=== PATIENT | female | born 1945 | race Hispanic/Latino ===

== ENCOUNTER 2017-02-06 16:24 | Emergency (ER) | payer MEDICARE, MEDICAID | END 2017-02-06 17:11 | disposition home or self-care (01) | LOC: ERS 16:24 | DX: G89.29 Other chronic pain (principal); M25.521 Pain in right elbow; E11.9 Type 2 diabetes mellitus without complications; E03.9 Hypothyroidism, unspecified; E78.5 Hyperlipidemia, unspecified; I10 Essential (primary) hypertension; F32.9 Major depressive disorder, single episode, unspecified; F17.210 Nicotine dependence, cigarettes, uncomplicated; E11.42 Type 2 diabetes mellitus with diabetic polyneuropathy; Z79.899 Other long term (current) drug therapy; Z79.82 Long term (current) use of aspirin | CPT/HCPCS: 96372; J2270 ==

== ENCOUNTER 2017-02-16 13:18 | Emergency (ER) | payer MEDICARE, MEDICAID ==
[2017-02-16] MEDS ORDERED: Morphine 2 MG/ML SYRINGE ONE (14:46)
== END 2017-02-16 15:28 | disposition home or self-care (01) ==
LOC: ERS 13:18
DX: E11.41 Type 2 diabetes mellitus with diabetic mononeuropathy (principal); G56.92 Unspecified mononeuropathy of left upper limb; E03.9 Hypothyroidism, unspecified; E78.5 Hyperlipidemia, unspecified; I10 Essential (primary) hypertension; F17.210 Nicotine dependence, cigarettes, uncomplicated; F32.9 Major depressive disorder, single episode, unspecified; Z79.82 Long term (current) use of aspirin; Z79.899 Other long term (current) drug therapy
CPT/HCPCS: 93005; 96372; J2270

== ENCOUNTER 2017-03-01 20:06 | Emergency (ER) | payer MEDICAID, MEDICARE ==
[2017-03-01 21:15] LABS: #Basophils 0.1 thou/uL (0.0-0.2); #Eosinphils 0.2 thou/uL (0.0-0.7); #Lymphocytes 2.6 thou/uL (1.20-3.40); #Monocytes 0.6 thou/uL (0.11-0.59); #Neutrophils 5.4 thou/uL (1.40-6.50); %Basophils 0.9 % (0.0-1.0); %Eosinophils 2.6 % (0.0-10.0); %Lymphocytes 28.9 % (21.0-51.0); Mean Platelet Volume 6.8 fL (7.4-10.4); Red Blood Cell (RBC) Count 4.97 mill/uL (4.20-5.40); White Blood Cell (WBC) Count 8.9 thou/uL (4.8-10.8)
[2017-03-01 21:34] LABS: ALT (SGPT) 11 U/L (8-55); AST (SGOT) 13 U/L (5-34); Alkaline Phosphatase 72 U/L (40-150); Anion Gap 15 mmol/L (10-20); BUN (Urea Nitrogen) 12 mg/dL (9.8-20.1); Bilirubin, Total 0.3 mg/dL (0.2-1.2); Calc. Creatinine Clearance 0 mL/min (70-130); Calcium 9.1 mg/dL (7.8-10.44); Carbon Dioxide 23 mmol/L (23-31); Chloride 101 mmol/L (98-107); Estimated GFR-MDRD 77; Globulin 3.9 g/dL (2.4-3.5); Protein, Total 7.3 g/dL (6.0-8.3)
[2017-03-01] MEDS ORDERED: Morphine 4 MG/ML Carpuject ONE (22:13)
--- NOTE | 2017-04-20 15:24 | EKG ---
Test Reason : Blood Pressure : / mmHG Vent. Rate : 092 BPM Atrial Rate : 092 BPM P-R Int : 168 ms QRS Dur : 118 ms QT Int : 388 ms P-R-T Axes : 043 -56 093 degrees QTc Int : 479 ms Normal sinus rhythm Left axis deviation Left ventricular hypertrophy with QRS widening and repolarization abnormality Cannot rule out Septal infarct , age undetermined Abnormal ECG Confirmed by FUENTES Medina, MACK ([id number]), image editor MICHELLE GUTIERREZ ([id number]) on 04/20/2017 3:24:19 PM Referred By: Confirmed By:MACK DILL M.D.
== END 2017-03-01 23:41 | disposition home or self-care (01) ==
LOC: ERS 20:06
DX: M79.601 Pain in right arm (principal); E11.65 Type 2 diabetes mellitus with hyperglycemia; E03.9 Hypothyroidism, unspecified; E78.5 Hyperlipidemia, unspecified; I10 Essential (primary) hypertension; F32.9 Major depressive disorder, single episode, unspecified; F17.210 Nicotine dependence, cigarettes, uncomplicated; Z79.899 Other long term (current) drug therapy; Z87.440 Personal history of urinary (tract) infections
CPT/HCPCS: 36415; 36416; 80053; 85025; 93005; 96372; J2270

== ENCOUNTER 2017-04-08 14:23 | Outpatient (CLI) | payer MEDICARE, MEDICAID ==
--- NOTE | 2017-04-08 19:29 | MRI ---
LEFT SHOULDER MRI WITHOUT IV CONTRAST: History: 71-year-old female with chronic left shoulder pain. Technique: Multiplanar, multisequence MRI examination of the left shoulder was performed. FINDINGS: There is some moderate fluid in the subdeltoid bursa and very minimal fluid in the subacromial bursa. Degenerative changes of the AC joint with some subchondral cystic changes with some downsloping of t he anterior acromion. There is a somewhat globular shaped focus of abnormal high signal involving the insertion of the supraspinatus tendon anteriorly associated with some subchondral cystic change prob ably representing at least a high grade partial thickness insertional tear with probable small puncta te full thickness component given adjacent subdeltoid bursal fluid. There is some minimal abnormal ma rrow signal in the anterior greater tuberosity adjacent to the subchondral cystic change. There also appears to be a small interstitial component tear. Subchondral cystic changes are noted adjacent to t he infraspinatus tendon insertion. Subscapularis and biceps tendons appear intact. There is some mini mal increased signal associated with the superior labrum, probably a degenerative type slap tear. Rot ator cuff muscles are within normal limits of signal and volume. IMPRESSION: At least mid to probable high grade focal somewhat globular tear of the supraspinatus tendon insertio n region with fluid within the subdeltoid bursa, probably representing a small punctate full thicknes s component tear. No evidence for significant retraction. Abnormal signal involving the superior labr um suspicious for a degenerative type slap tear. AC joint arthrosis. Minimal abnormal marrow signal a round a small subchondral cystic focus involving the anterior greater tuberosity. POS: [facility]
== END 2017-04-08 14:24 | disposition home or self-care (01) ==
LOC: MRI 14:23
PROVIDERS: ATTEND Family Medicine
DX: M25.512 Pain in left shoulder (principal); G89.29 Other chronic pain; S46.812A Strain of other muscles, fascia and tendons at shoulder and upper arm level, left arm, initial encounter; M19.012 Primary osteoarthritis, left shoulder; M85.412 Solitary bone cyst, left shoulder

== ENCOUNTER 2017-04-24 16:31 | Emergency (ER) | payer MEDICARE, MEDICAID ==
[2017-04-24] MEDS ORDERED: Morphine 4 MG/ML VIAL ONE ×2 (20:23→20:24)
[2017-04-24 20:35] LABS: #Basophils 0.1 thou/uL (0.0-0.2); #Eosinphils 0.2 thou/uL (0.0-0.7); #Lymphocytes 2.7 thou/uL (1.20-3.40); #Monocytes 0.5 thou/uL (0.11-0.59); #Neutrophils 5.4 thou/uL (1.40-6.50); %Eosinophils 2.5 % (0.0-10.0); %Lymphocytes 30.4 % (21.0-51.0); %Monocytes 5.6 % (0.0-10.0); Hematocrit 36.7 % (36.0-47.0); Mean Platelet Volume 7.4 fL (7.4-10.4); Red Blood Cell (RBC) Count 4.36 mill/uL (4.20-5.40); White Blood Cell (WBC) Count 8.9 thou/uL (4.8-10.8)
[2017-04-24 21:19] LABS: ALT (SGPT) 12 U/L (8-55); AST (SGOT) 18 U/L (5-34); Alkaline Phosphatase 57 U/L (40-150); Anion Gap 17 mmol/L (10-20); BUN (Urea Nitrogen) 18 mg/dL (9.8-20.1); Bilirubin, Total 0.4 mg/dL (0.2-1.2); Calc. Creatinine Clearance 0 mL/min (70-130); Calcium 9.8 mg/dL (7.8-10.44); Carbon Dioxide 21 mmol/L (23-31); Chloride 103 mmol/L (98-107); Estimated GFR-MDRD 69; Globulin 3.7 g/dL (2.4-3.5); Protein, Total 7.8 g/dL (6.0-8.3)
== END 2017-04-24 20:39 | disposition home or self-care (01) ==
LOC: ERS 16:31
DX: G89.29 Other chronic pain (principal); M25.512 Pain in left shoulder; F17.210 Nicotine dependence, cigarettes, uncomplicated; E11.42 Type 2 diabetes mellitus with diabetic polyneuropathy; E03.9 Hypothyroidism, unspecified; E78.5 Hyperlipidemia, unspecified; F32.9 Major depressive disorder, single episode, unspecified; I10 Essential (primary) hypertension
CPT/HCPCS: 36415; 80053; 85025; 93005; 96372; 99406; J2270

== ENCOUNTER 2017-05-17 11:48 | Emergency (ER) | payer MEDICARE, MEDICAID ==
--- NOTE | 2017-05-17 14:11 | RAD ---
THREE VIEWS LEFT SHOULDER: DATE: 05/17/17. HISTORY: Generalized weakness. Weight loss. History reports recent fall onto left shoulder and now has left shoulder pain. COMPARISON: 12/02/16. FINDINGS: There is no evidence of a fracture or dislocation involving the left shoulder. Views of the left vianca ulder are stable compared to the prior exam. IMPRESSION: No acute osseous abnormality of the left shoulder. POS: [facility]
--- NOTE | 2017-05-17 14:11 | RAD ---
PORTABLE AP CHEST X-RAY: 05/17/2017 HISTORY: Generalized weakness and decreased appetite. The patient has been waking up with shortness of breath in the middle of the night. COMPARISON: 12/02/2016 FINDINGS: The cardiac silhouette is magnified by projection but does appear mildly enlarged. The pulmonary vas culature is within normal limits, and the lungs are clear. Vascular calcifications are seen in the t horacic aorta. There has been no interval change from the prior exam. IMPRESSION: 1. Mild cardiomegaly without overt congestive heart failure. 2. No acute cardiopulmonary process. POS: [facility]
[2017-05-17 14:21] LABS: #Basophils 0.1 thou/uL (0.0-0.2); #Eosinphils 0.2 thou/uL (0.0-0.7); #Monocytes 0.5 thou/uL (0.11-0.59); #Neutrophils 4.9 thou/uL (1.40-6.50); %Basophils 1.2 % (0.0-1.0); %Eosinophils 1.9 % (0.0-10.0); %Monocytes 5.2 % (0.0-10.0); %Neutrophils 56.7 % (42.0-75.0); Hemoglobin 10.9 g/dL (12.0-16.0); Mean Corpuscular HGB CONC 32.1 g/dL (32.0-36.0); Mean Corpuscular Hemoglobin 26.9 pg (27.0-31.0); Mean Corpuscular Volume 83.8 fl (81.0-99.0); Mean Platelet Volume 7.2 fL (7.4-10.4); Platelet Count 437 thou/uL (130-400); RBC Distribution Width 15.9 % (11.5-14.5); Red Blood Cell (RBC) Count 4.05 mill/uL (4.20-5.40); White Blood Cell (WBC) Count 8.6 thou/uL (4.8-10.8)
[2017-05-17 14:38] LABS: Bilirubin Negative (Negative); Blood, Urine Negative (Negative); Clarity CLOUDY (Clear); Glucose, Urine (Dipstick) >=1000 mg/dL (Negative); Leukocyte Moderate (Negative); Nitrite Negative (Negative); Protein, Urine (Dipstick) 30 mg/dL (Neg-Trace); Specific Gravity, Urine 1.027 (1.002-1.036)
[2017-05-17 14:40] LABS: Bacteria/HPF 4+ HPF (None Seen); Hyaline Casts/LPF 4-6 HYALINE CAST LPF (0-3 Hyaline); Pathc Cast-AUWi Flag 0.94 (0-2.49); Squamous Epithelial 0-3 HPF (0-3)
[2017-05-17 14:49] LABS: CKMB 4.2 ng/mL (0-6.6); Troponin I 0.037 ng/mL (< 0.028)
[2017-05-17 14:53] LABS: RBC/HPF None Seen HPF (0-3)
[2017-05-17 14:56] LABS: ALT (SGPT) 14 U/L (8-55); AST (SGOT) 43 U/L (5-34); Alkaline Phosphatase 59 U/L (40-150); Anion Gap 18 mmol/L (10-20); BUN (Urea Nitrogen) 12 mg/dL (9.8-20.1); Bilirubin, Total 0.4 mg/dL (0.2-1.2); CK (CPK) 151 U/L (29-168); Calc. Creatinine Clearance 0 mL/min (70-130); Calcium 9.6 mg/dL (7.8-10.44); Carbon Dioxide 22 mmol/L (23-31); Chloride 100 mmol/L (98-107); Estimated GFR-MDRD 60; Globulin 4.6 g/dL (2.4-3.5); Glucose 115 mg/dL (80-115); Lipase 21 U/L (8-78); Potassium 5.6 mmol/L (3.5-5.1); Protein, Total 8.6 g/dL (6.0-8.3); Sodium 134 mmol/L (136-145)
== END 2017-05-17 16:24 | disposition home or self-care (01) ==
LOC: ERS 11:48
DX: N39.0 Urinary tract infection, site not specified (principal); E03.9 Hypothyroidism, unspecified; E78.5 Hyperlipidemia, unspecified; I10 Essential (primary) hypertension; E11.40 Type 2 diabetes mellitus with diabetic neuropathy, unspecified; F32.9 Major depressive disorder, single episode, unspecified; F17.210 Nicotine dependence, cigarettes, uncomplicated
CPT/HCPCS: 51701; 71045; 80053; 81003; 81015; 82553; 83690; 83735; 84484; 85025; 93005; A4353